=== PATIENT | female | born 2000 | race Caucasian/White ===

== ENCOUNTER 2022-12-16 17:02 | Emergency (ER) | payer OTHER ==
[2022-12-16] MEDS ORDERED: KETOROLAC TROMETHAMINE 15 MG/ML VIAL IM ONE (17:14)
[2022-12-16] MEDS ORDERED: KETOROLAC TROMETHAMINE 15 MG/ML VIAL ONE (17:18)
[2022-12-16 17:41] VITALS: BP 125/78; PULSE 79; RESP 16; TEMP 98; BMI 29.0
== END 2022-12-16 18:34 | disposition home or self-care (01) ==
LOC: FER 17:02
PROC: 2W3CX1Z Immobilization of Right Lower Arm using Splint (ICD-10-PCS; principal; 2022-12-16)
PROC: 3E0233Z Introduction of Anti-inflammatory into Muscle, Percutaneous Approach (ICD-10-PCS; 2022-12-16)
DX: S69.91XA Unspecified injury of right wrist, hand and finger(s), initial encounter (principal); W23.0XXA Caught, crushed, jammed, or pinched between moving objects, initial encounter
CPT/HCPCS: 73140-TC-RT-FY; 99284-25

== ENCOUNTER 2022-12-17 07:58 | Emergency (ER) | payer OTHER ==
[2022-12-17 08:28] VITALS: BP 120/88; PULSE 74; RESP 18; TEMP 97.7; BMI 21.9
== END 2022-12-17 08:30 | disposition home or self-care (01) ==
LOC: FER 07:58
PROC: 0HCQXZZ Extirpation of Matter from Finger Nail, External Approach (ICD-10-PCS; principal; 2022-12-17)
DX: M79.644 Pain in right finger(s) (principal); S60.011A Contusion of right thumb without damage to nail, initial encounter; W23.1XXA Caught, crushed, jammed, or pinched between stationary objects, initial encounter
CPT/HCPCS: 99282-25